=== PATIENT | female | born 1930 ===

== ENCOUNTER 2017-06-06 06:00 | Day surgery (SDC) | payer OTHER ==
[~2017-06-06 06:00] MED LIST: ATORVASTATIN CA10 MG PO; IRON1TAB4 PO; MICARDIS HCT 41 EACH PO; ROCALTROL0.25 MCG PO; TERAZOSIN PO
== END 2017-06-06 11:35 | disposition home or self-care (01) ==
LOC: CIR.AMB 06:00
DX: H71.22 Cholesteatoma of mastoid, left ear (principal); H70.12 Chronic mastoiditis, left ear; H90.42 Sensorineural hearing loss, unilateral, left ear, with unrestricted hearing on the contralateral side

== ENCOUNTER 2017-06-13 09:43 | Outpatient (CLI) | payer OTHER ==
[~2017-06-13] VITALS: Ht 152.4 cm; Wt 75.7 kg
== END 2017-06-13 10:00 | disposition home or self-care (01) ==
LOC: OFIC 805 09:43
DX: H90.42 Sensorineural hearing loss, unilateral, left ear, with unrestricted hearing on the contralateral side (principal); H70.12 Chronic mastoiditis, left ear; H71.12 Cholesteatoma of tympanum, left ear; H61.322 Acquired stenosis of left external ear canal secondary to inflammation and infection

== ENCOUNTER 2017-08-15 10:18 | Outpatient (CLI) | payer OTHER ==
[~2017-08-15] VITALS: Ht 152.4 cm; Wt 75.7 kg
== END 2017-08-15 10:40 | disposition home or self-care (01) ==
LOC: OFIC 805 10:18
DX: H70.12 Chronic mastoiditis, left ear (principal); H71.12 Cholesteatoma of tympanum, left ear; H61.392 Other acquired stenosis of left external ear canal; H90.42 Sensorineural hearing loss, unilateral, left ear, with unrestricted hearing on the contralateral side

== ENCOUNTER 2018-01-16 09:26 | Outpatient (CLI) | payer OTHER ==
[~2018-01-16] VITALS: Ht 152.4 cm; Wt 74.8 kg
== END 2018-01-16 09:45 | disposition home or self-care (01) ==
LOC: OFIC 805 09:26
DX: H70.12 Chronic mastoiditis, left ear (principal); H71.12 Cholesteatoma of tympanum, left ear; H61.392 Other acquired stenosis of left external ear canal; H90.42 Sensorineural hearing loss, unilateral, left ear, with unrestricted hearing on the contralateral side

== ENCOUNTER 2018-02-13 10:15 | Outpatient (CLI) | payer OTHER ==
[~2018-02-13] VITALS: Ht 152.4 cm; Wt 75.7 kg
== END 2018-02-13 10:30 | disposition home or self-care (01) ==
LOC: OFIC 805 10:15
DX: H70.12 Chronic mastoiditis, left ear (principal); H90.42 Sensorineural hearing loss, unilateral, left ear, with unrestricted hearing on the contralateral side